=== PATIENT | male | born 1980 | race Hispanic/Latino ===

== ENCOUNTER 2017-11-03 17:08 | Emergency (ER) | payer SELFPAY ==
[2017-11-03 17:41] VITALS: RESP 18
--- NOTE | 2017-11-03 18:24 | ED PDOC ---
HPI: Psych/Substance Abuse Time Seen by Provider: 11/03/17 17:55 Chief Complaint (Nursing): Psychiatric Evaluation Chief Complaint (Provider): Psychiatric Evaluation History Per: Patient History/Exam Limitations: no limitations Onset/Duration Of Symptoms: Days Current Symptoms Are (Timing): Still Present Modifying Factor(s): None Associated Symptoms: Depression Additional Complaint(s): 37 year old male presents to the ED for psychiatric evaluation for mood swings. Patient states symptoms have been going on since his late teens. Patient reports of feeling depressed for days then elated and excited for days. Patient has never seen a physician/psychiatrist for symptoms and decided that it was affecting his life enough to be evaluated, thus prompting today's visit. Denies suicidal ideation, homicidal ideation, auditory hallucinations, visual hallucination, drug abuse, and alcohol abuse. PMD: None Provided. Past Medical History Reviewed: Historical Data, Nursing Documentation, Vital Signs Vital Signs: Last Vital Signs Temp 98.6 F 11/03/17 17:38 Pulse 94 H 11/03/17 17:38 Resp 18 11/03/17 17:38 BP 123/60 11/03/17 17:38 Pulse Ox 95 11/03/17 17:38 - Medical History PMH: No Chronic Diseases - Surgical History Surgical History: No Surg Hx - Family History Family History: States: No Known Family Hx - Social History Current smoker - smoking cessation education provided: No Alcohol: Occasional Drugs: Denies - Home Medications Home Medications: Ambulatory Orders Medication Instructions Recorded No Known Home Med 11/03/17 - Allergies Allergies/Adverse Reactions: Allergies Allergy/AdvReac Type Severity Reaction Status Date / Time No Known Allergies Allergy Verified 11/03/17 17:41 Review of Systems ROS Statement: Except As Marked, All Systems Reviewed And Found Negative Psych: Positive for: Anxiety (episodes), Depression (episodes) Physical Exam - Reviewed Nursing Documentation Reviewed: Yes Vital Signs Reviewed: Yes - Physical Exam Appears: Positive for: Non-toxic, No Acute Distress Head Exam: Positive for: ATRAUMATIC, NORMOCEPHALIC Skin: Positive for: Warm, Dry Eye Exam: Positive for: EOMI, PERRL ENT: Negative for: Pharyngeal Erythema, Tonsillar Exudate Neck: Positive for: Painless ROM, Supple Cardiovascular/Chest: Positive for: Regular Rate, Rhythm. Negative for: Murmur Respiratory: Positive for: Normal Breath Sounds. Negative for: Respiratory Distress Gastrointestinal/Abdominal: Positive for: Soft. Negative for: Tenderness Back: Positive for: Normal Inspection. Negative for: Decreased ROM Extremity: Positive for: Normal ROM. Negative for: Deformity Lymphatic: Negative for: Adenopathy Neurologic/Psych: Positive for: Mood/Affect (normal mood/affect). Negative for : Motor/Sensory Deficits - ECG O2 Sat by Pulse Oximetry: 95 (RA) Pulse Ox Interpretation: Normal Medical Decision Making Medical Decision Making: Time: 180 Impression: Mood Disorder Plan: -- Crisis Evaluation 1999 Evaluated by CW who dw Psychiatrist. Pt stable for dc. Scribe Attestation: Documented by Forrest Waldron, acting as a scribe for Dr. Grisel Hicks. Provider Scribe Attestation: All medical record entries made by the Scribe were at my direction and personally dictated by me. I have reviewed the chart and agree that the record accurately reflects my personal performance of the history, physical exam, medical decision making, and the department course for this patient. I have also personally directed, reviewed and agree with the discharge instructions and disposition. Disposition - Clinical Impression Clinical Impression: Depression - Disposition Referrals: [facility] [Outside] Disposition: Routine/Home Disposition Time: 20:00 Condition: STABLE Additional Instructions: PLEASE FOLLOW UP INSTRUCTED BY CORE SETTER Instructions: Depression Forms: [employer] ([place])
[2017-11-03 19:36] VITALS: BP 125/67; PULSE 76; TEMP 97.8
[2017-11-04 10:48] VITALS: O2SAT 95
== END 2017-11-03 19:35 | disposition home or self-care (01) ==
LOC: H.ER 17:08
DX: F32.9 Major depressive disorder, single episode, unspecified (principal)